=== PATIENT | female | born 1965 | race African-American/Black ===

== ENCOUNTER 2018-02-26 10:56 | Emergency (ER) | payer SELFPAY ==
[~2018-02-26] VITALS: Ht 162.6 cm; Wt 113.4 kg
--- OUTSIDE RECORDS SUMMARY | 2018-02-26 10:58 | XMS REPORT ---
Author Author [facility] Address Unknown Phone Unavailable Care Team Providers Care Website/Blog Editor Name Role Phone Unavailable Unavailable Payers Payer Name Policy Type Policy Number Effective Date Expiration Date Problems This patient has no known problems. Allergies, Adverse Reactions, Alerts Allergy Name Allergy Type Status Severity Reaction(s) Onset Date Inactive Date Treating Clinician Comments No Known Allergies DA Active U 2017-12-09 00:00:00 No Known Contrast Allergies DA Active U 2003-07-12 00:00:00 No Known Drug Allergies DA Active U 2003-07-12 00:00:00 No Known Food Allergies DA Active U 2003-07-12 00:00:00 No Known Other Allergies DA Active U 2003-07-12 00:00:00 Medications This patient has no known medications.
== END 2018-02-26 11:17 | disposition home or self-care (01) ==
LOC: FSED 10:56
DX: I10 Essential (primary) hypertension (principal)
CPT/HCPCS: 99283